=== PATIENT | male | born 1945 | race Caucasian/White ===

== ENCOUNTER 2016-11-01 07:17 | Day surgery (SDC) | payer OTHER ==
[2016-11-01] MEDS ORDERED: ONDANSETRON 4 MG/2 ML VIAL IVPUSH PRN (07:35)
[2016-11-01] MEDS ORDERED: ACETAMINOPHEN 325 MG TABLET (FP) PO PRN (07:35)
[2016-11-01] MEDS ORDERED: BACITRACIN 3.5 GM OPTHALMIC OINT TUBE ONE (08:48)
[2016-11-01] MEDS ORDERED: BUPIVACAINE HCL/PF 0.5% (5MG/ML) 10 ML VIAL ONE (08:48)
[2016-11-01] MEDS ORDERED: LIDOCAINE 1%-EPI 1:100,000 30 ML MDV IJ ONE (08:48)
[2016-11-01] MEDS ORDERED: MIDAZOLAM HCL 2 MG/2 ML SINGLE DOSE VIAL ONE (08:52)
[2016-11-01] MEDS ORDERED: PROPOFOL 20 ML ONE ×2 (08:52)
[2016-11-01] MEDS ORDERED: ceFAZolin SODIUM 1 GM VIAL ONE (09:34)
[2016-11-01 11:28] LABS: ALBUMIN 3.6 g/dl (3.5-5.0); ALK PHOS 79 U/L (32-92); ANION GAP 8 (8-16); CALCIUM 8.7 mg/dl (8.4-10.2); CO2 25 mmol/L (22-28); CREATININE 0.9 mg/dl (0.6-1.3); GLUCOSE,RANDOM 114 mg/dl (74-106); SGOT/AST 24 U/L (10-42); SGPT/ALT 20 U/L (10-40); TOT PROT 5.9 g/dl (6.4-8.3)
[2016-11-01 11:59] VITALS: TEMP 98.2
[2016-11-01 12:23] VITALS: BP 120/67; PULSE 54
--- NOTE | 2016-11-02 07:28 | OP ---
DATE OF OPERATION: 11/01/2016 PREOPERATIVE DIAGNOSIS: Ectropion, left lower lid with excessive tearing, left eye. POSTOPERATIVE DIAGNOSIS: Ectropion, left lower lid with excessive tearing, left eye. PROCEDURE: 1. Lateral tarsal strip, left lower lid. 2. Conjunctivoplasty with punctal inversion, left lower lid. 3. Excision of conjunctivochalasis. 4. Punctoplasty, left lower lid. SURGEON: Carmen Berg MD ANESTHESIA: Local with sedation that was converted to LMA due to the patients almost immediate upper airway obstruction. COMPLICATONS: None. ESTIMATED BLOOD LOSS: 2- 3 mL. OPERATION REPORT: The patient was brought to the operating room, placed on the operating room table. Vital signs were monitored by Anesthesia. Time-out was performed. Tetracaine was placed in both eyes. Lateral canthal lines were marked at the left lateral canthus, and a 50/50 mixture of 2% Xylocaine with 1:100,000 epinephrine, 0.5% Marcaine was injected subcutaneously at the lateral canthus down to periosteum and lateral third in the upper/lower lids, subconjunctival, and the nasal third of the left lower lid and in the plica of inferior fornix for a total of 3-4 mL. The patient was prepped and draped in the usual sterile fashion, exposing both eyes. Due to obstructive breathing pattern, he was placed under LMA anesthesia before prepping and draping. The right eye was taped closed with Steri-Strips, and the lateral canthal incision was made at the left lateral canthus, carried down to periosteum with a [place] needle. Inferior vinay of the lateral canthal tendon was from the orbital rim with sharp dissection, overlapped at the orbital rim, marked with a sterile marking pen, divided to an anterior and posterior lamella. The anterior lamella was excised. Posterior lamella was denuded of epithelium posteriorly and superiorly with Aleyda scissors and a No. 11 blade and retracted and released. The lid was everted. The subpunctal evelyne of conjunctival retractors was excised from the left lower lid to the postorbicularis surface. The punctum was dilated, and then, a small posterior punctal snip was performed in order to enlarge the punctal opening, and a small amount of inferior plical conjunctivochalasis was excised and cauterized, and a double-arm 4-0 chromic suture was passed through the inferior retractors, superior retractor, conjunctiva, and then exiting through the full-thickness eyelid and the inferior conjunctiva, inverting the punctum, and this was tied on the skin. The lateral tarsal strip was secured to the internal surface of the orbital rim in a correct horizontal position with a double-arm 5-0 Prolene reinforced with two 6-0 Vicryl lasso sutures. A 5-0 chromic was passed in buried fashion to the wound and james line and james line of wound of the upper and lower lid respectively, and this was tied recreating the canthus. The Prolene was now tied attaching the tarsal strip to the orbital rim. The excess tarsal strip was overlapped and closed with a 5-0 chromic, burying with Prolene, subcutaneous muscle tissues were closed with 5-0 chromic, and the skin was closed with interrupted 5-0 plain suture. Antibiotic irrigation was used throughout the case. Bacitracin ointment was placed on the sutures of the lateral canthus and inferior fornix and inferonasal eyelid. The patient was taken to the recovery room in stable condition. CARMEN BERG M.D. [id number]
== END 2016-11-01 12:33 | disposition home or self-care (01) ==
LOC: FASU 07:17
PROVIDERS: ATTEND Ophthalmology
PROC: 08SR0ZZ Reposition Left Lower Eyelid, Open Approach (ICD-10-PCS; principal; 2016-11-01 09:53)
DX: H02.105 Unspecified ectropion of left lower eyelid (principal)
CPT/HCPCS: 36415; 80053; 94760